=== PATIENT | male | born 1985 | race Caucasian/White ===

== ENCOUNTER 2021-10-02 11:15 | Emergency (ER) | payer SELFPAY ==
[2021-10-02 11:33] VITALS: BP 141/82; PULSE 89; RESP 18; TEMP 36.6; O2SAT 100
--- NOTE | 2021-10-02 12:00 | ED.SKABFB ---
HPI - Skin/Abscess/Foreign Bdy General Chief complaint: Wound/Laceration Stated complaint: Cut Rt Foot Time Seen by Provider: 10/02/21 12:01 Source: patient and RN notes reviewed Mode of arrival: ambulatory Limitations: no limitations History of Present Illness HPI narrative: 36-year-old male presents with concern to a cut to the right foot. He reports he dropped an ax on the foot while wearing shoes and socks. Reports open skin to the second digit of the foot. He reports he cleaned the wound thoroughly, he would just like it evaluated for possible infection. He also reports 2 areas of open skin on the bottom of his foot. Reports he does a lot of dancing, fighting, chopping wood in his bare feet. He denies that those areas are itchy. Reports they are occasionally tender. He denies fever, bodies, chills, sweats. Denies decreased sensation, range of motion, strength in the foot or any digit of the foot. MD complaint: laceration Related Data Home Medications Medication Instructions Recorded Confirmed No Home Medications 10/02/21 10/02/21 Allergies Allergy/AdvReac Type Severity Reaction Status Date / Time No Known Allergies Allergy Verified 10/02/21 12:08 Review of Systems Review of Systems: CONSTITUTIONAL: Denies malaise, chills, sweats, or fever. EYES: Denies redness, or discharge. ENT: Denies rhinorrhea, congestion, swollen lips, swollen tongue CARDIOVASCULAR: Denies chest pain, palpitations, or edema. RESPIRATORY: Denies cough or dyspnea. GASTROINTESTINAL: Denies abdominal pain, nausea, vomiting SKIN: Reports abrasion to the second digit of the right foot. Reports cracking skin at the bottom of the right foot MUSCULOSKELETAL: Denies joint pain or myalgia. NEUROLOGIC: Denies headache. All systems reviewed & are unremarkable except as noted in HPI and below PMFSH Comments At time of signature, agree with nursing past medical, surgical, social and family history. There is no relevant family history pertinent to the presenting complaint Exam Narrative: GENERAL: Well-appearing, well-nourished, and in no acute distress. HEAD: Normocephalic, atraumatic. EYES: PERRLA, conjunctivae clear, and EOMI. ENT: Mucous membranes moist. Oropharynx without edema, erythema or lesions. NECK: Supple. No lymphadenopathy CHEST: Clear to auscultation. No respiratory distress. HEART: Regular rate and rhythm. SKIN: Warm, dry. 1.5 cm linear abrasion noted to the dorsal aspect and digit of the right foot without surrounding erythema, edema, induration. No drainage noted.Two 0.5 cm skin fissures noted in the cracks of the skin at the palmar aspect of the right foot where the third and fourth digits may the foot. NEURO: Alert and oriented x3. PSYCH: Normal mood and affect Course Course Emergency Course: Patient is aware of diagnosis, understands and agrees to treatment plan. Anticipatory guidance given. Patient agrees to follow-up as directed and is aware of reasons to seek care at the emergency department. Portions of this record may have been created with voice recognition software Level of Care: Express Care Visit Vital Signs Vital signs: Vital Signs Temperature 97.9 F 10/02/21 11:33 Pulse Rate 89 10/02/21 11:33 Respiratory Rate 18 10/02/21 11:33 Blood Pressure 141/82 H 10/02/21 11:33 Pulse Oximetry 100 10/02/21 11:33 Oxygen Delivery Room Air 10/02/21 11:33 Temperature 97.9 F 10/02/21 11:33 Pulse Rate 89 10/02/21 11:33 Respiratory Rate 18 10/02/21 11:33 Blood Pressure 141/82 H 10/02/21 11:33 Pulse Oximetry 100 10/02/21 11:33 Oxygen Delivery Room Air 10/02/21 11:33 Reviewed. MDM - Skin/Abscess/Foreign Bdy MDM Narrative Medical decision making narrative: Exam findings show no acute concerns or changes; patient is non-toxic appearing and is in no distress. Patient is appropriate for outpatient treatment and follow-up. Critical Care Time Critical Care Time Critical Care Ti
[2021-10-02] MEDS: TETANUS,DIPHTHERIA,AC PERTUSSIS ADULT (0.5 ML) BOOSTRIX IM (12:12)
== END 2021-10-02 12:15 | disposition home or self-care (01) ==
PROVIDERS: Emergency Provider Nurse Practitioner
DX: S90.811A Abrasion, right foot, initial encounter (principal); W27.0XXA Contact with workbench tool, initial encounter; Z23 Encounter for immunization; Z85.51 Personal history of malignant neoplasm of bladder
CPT/HCPCS: 90471; 90715; 99212; G0463

== ENCOUNTER 2021-10-12 15:19 | Emergency (ER) | payer OTHER, SELFPAY ==
--- NOTE | 2021-10-12 15:28 | ED.WOUNDLAC ---
HPI - Wound/Laceration General Chief Complaint: Wound/Laceration Stated Complaint: rt calf laceration Time Seen by Provider: 10/12/21 15:28 Source: patient Mode of arrival: ambulatory Limitations: no limitations History of Present Illness HPI narrative: Mr. Leonard is a 36-year-old male patient presenting to the clinic today with complaints of a laceration to the right calf. He reports he was cutting wood and caught his leg with the ax. He has a 3 cm laceration to the right calf. Bleeding is controlled. Tetanus is up-to-date. Related Data Home Medications Medication Instructions Recorded Confirmed No Home Medications 10/02/21 10/02/21 Allergies Allergy/AdvReac Type Severity Reaction Status Date / Time No Known Allergies Allergy Verified 10/12/21 15:54 Review of Systems Review of Systems: Pertinent positives per HPI. Patient denies any fever, chills, rash, headache, visual changes, dizziness, cough, runny nose, sore throat, shortness of breath, chest pain, palpitations, nausea, vomiting, diarrhea, constipation, abdominal pain, or any urinary issues. PMFSH Comments At the time of my signature, I reviewed and agree with the nursing past medical, surgical, social, and family history. There is no relevant family history pertinent to the patient complaint. Exam Narrative: General: Well-developed, well nourished, in no apparent distress Head: Normocephalic, atraumatic. Cardio: Regular rate and rhythm, s1 and s2 normal, no murmur appreciated. Resp: Clear to auscultation bilaterally, no rhonchi, rales, wheezing or rubs. Integumentary: [place], warm, and dry, 3 cm gaped laceration to the right medial calf. Bleeding controlled Course Course Emergency Course: Portions of this record may have been created with voice recognition software. Level of Care: Express Care Visit Vital Signs Vital signs: Vital Signs Temperature 35.7 C L 10/12/21 15:40 Pulse Rate 103 H 10/12/21 15:40 Respiratory Rate 18 10/12/21 15:40 Blood Pressure 129/97 H 10/12/21 15:40 Pulse Oximetry 100 10/12/21 15:40 Oxygen Delivery Room Air 10/12/21 15:40 Temperature 35.7 C L 10/12/21 15:40 Pulse Rate 103 H 10/12/21 15:40 Respiratory Rate 18 10/12/21 15:40 Blood Pressure 129/97 H 10/12/21 15:40 Pulse Oximetry 100 10/12/21 15:40 Oxygen Delivery Room Air 10/12/21 15:40 Vital signs reviewed Procedures Laceration Laceration 1: Date: 10/12/21 Site: lower extremity (Right medial calf) Side (If applicable): right Size (cm): 3 Description: linear Depth: simple, single layer Local Anesthetic: lidocaine 1% Amount of anesthesia used (mL): 3 Pre-repair: wound explored and irrigated ====== Skin Level ====== Skin layer closed with: nylon Size (cm): 4-0 Number of sutures: 4 Technique: simple, interrupted ====== Subcutaneous Layer ====== ====== Muscle Layer ====== ====== Tendon Layer ====== Dressing: Verbal consent obtained for laceration repair. Risk and benefits explained and patient voiced understanding. Area was cleansed with technic care and was prepped and draped using sterile technique. A 27-gauge needle was used to instill 3 mL of lidocaine without epi into the wound edges. A 4-0 suture on a p3 needle was used to place 4 interrupted sutures bringing the wound edges together- well approximated. Patient tolerated procedure well. TAMMI and sterile dressing applied. MDM - Wound/Laceration MDM Narrative Medical decision making narrative: At the time of visit patient is resting comfortably on the exam table. Patient has a 3 cm laceration to the right medial calf. Laceration repair was performed and patient tolerated procedure well. 4 interrupted sutures placed to bring the wound edges together well approximated. Supportive measures were discussed with the patient he voiced understanding of disc
[2021-10-12 15:40] VITALS: BP 129/97; PULSE 103; RESP 18; TEMP 35.7; O2SAT 100
== END 2021-10-12 16:14 | disposition home or self-care (01) ==
PROVIDERS: Emergency Provider Nurse Practitioner Family
DX: S81.811A Laceration without foreign body, right lower leg, initial encounter (principal); W27.0XXA Contact with workbench tool, initial encounter; Z85.51 Personal history of malignant neoplasm of bladder
CPT/HCPCS: 12002; 99212; G0463

== ENCOUNTER 2021-10-23 13:40 | Emergency (ER) | payer OTHER, SELFPAY ==
[2021-10-23 13:45] VITALS: BP 128/94; PULSE 92; RESP 18; TEMP 36.3; O2SAT 100
--- NOTE | 2021-10-23 13:59 | ED.GENADULT ---
HPI - General Adult General Chief complaint: Wound/Laceration Stated complaint: suture removal Source: patient Mode of arrival: ambulatory Limitations: no limitations History of Present Illness HPI narrative: Patient presents for suture removal from the right lower extremity. He indicates he cut himself with an ax and was evaluated here on 10/12/2020. He had 4 sutures placed at that time. He has not been applying antibiotic ointment as directed. No fever, chills, nausea, vomiting, purulence from the affected area. He does have some surrounding redness. States pain is controlled. Tetanus UTD. No additional complaints or concerns. Related Data Home Medications Medication Instructions Recorded Confirmed No Home Medications 10/02/21 10/23/21 Allergies Allergy/AdvReac Type Severity Reaction Status Date / Time No Known Allergies Allergy Verified 10/23/21 13:50 Review of Systems Review of Systems: CONSTITUTIONAL: Denies fever, chills, or sweats. EYES: Denies visual changes, redness, or discharge. ENT: Denies rhinorrhea, congestion, sore throat, or otalgia. CARDIOVASCULAR: Denies chest pain, palpitations, or edema. RESPIRATORY: Denies cough or dyspnea. GASTROINTESTINAL: Denies abdominal pain, nausea, vomiting, or diarrhea. GENITOURINARY: Denies dysuria or hematuria. SKIN:Reports healing laceration to anterior RLE MUSCULOSKELETAL: Denies back pain, joint pain, or myalgia. NEUROLOGIC: Denies headache, numbness, dizziness, or weakness. PSYCHIATRIC: Denies anxiety or depression. [facility] Past Medical History Medical History (Updated 10/23/21 @ 14:15 by GONZALO PinedaP, ) No pertinent past medical history Surgical History Surgical History (Updated 10/23/21 @ 14:15 by Ernetso Martell, ARIADNA, ) No pertinent past surgical history Family History Family History Mother Family history non-contributory Social History Social History Living arrangements: with family Gender identity (if verbalized by the patient): Male Sexual Orientation (if Verbalized by the Patient): Straight or Heterosexual Spiritual care concerns: No Exam Narrative: GENERAL: Well-appearing, well-nourished, and in no acute distress. HEAD: Normocephalic, atraumatic. EYES: PERRLA and EOMI. ENT: Nares clear, no rhinorrhea or epistaxis. Mucous membranes moist. Oropharynx without tonsillar hypertrophy exudate or other lesions. Bilateral TMs pearly yap nonbulging NECK: Supple. No adenopathy or masses. No carotid bruits or JVD CHEST: Clear to auscultation. No respiratory distress. No wheezes rales or rhonchi HEART: Regular rate and rhythm. No murmur heard. Normal peripheral pulses. ABDOMEN: Soft, nontender, nondistended, normal active bowel sounds. EXTREMITIES: Normal range of motion. No edema. SKIN: Approximately 3 cm linear laceration to right lower leg which is approximated with (4) sutures. There is some mild surrounding erythema. No fluctuance or purulence. Warm, dry, no rash. NEURO: No focal deficits. Alert and oriented x3. PSYCH: Normal mood and affect. Course Course Emergency Course: This is a 36-year-old male who presented for suture removal. 4 sutures were removed and patient tolerated well. Advised on wound care. Apply Neosporin. Follow up outpatient for further evaluation and treatment and return for worsening symptoms. Pt in agreement with plan of care. Level of Care: Express Care Visit Vital Signs Vital signs: Vital Signs Temperature 36.3 C L 10/23/21 13:45 Pulse Rate 92 10/23/21 13:45 Respiratory Rate 18 10/23/21 13:45 Blood Pressure 128/94 H 10/23/21 13:45 Pulse Oximetry 100 10/23/21 13:45 Oxygen Delivery Room Air 10/23/21 13:45 Temperature 36.3 C L 10/23/21 13:45 Pulse Rate 92 10/23/21 13:45 Respiratory Rate 18 10/23/21 13:45 Blood Pressure 128/94 H
== END 2021-10-23 13:59 | disposition home or self-care (01) ==
PROVIDERS: Emergency Provider Nurse Practitioner
DX: S81.811D Laceration without foreign body, right lower leg, subsequent encounter (principal); W27.0XXD Contact with workbench tool, subsequent encounter
CPT/HCPCS: 99211; G0463